=== PATIENT | female | born 1995 | race Two or more races ===

== ENCOUNTER 2025-04-27 08:40 | Emergency (ER) | payer SELFPAY ==
[~2025-04-27] VITALS: Ht 170.2 cm; Wt 82.5 kg
[2025-04-27 08:43] VITALS: BP 126/64; PULSE 79; RESP 15; TEMP 98.2; O2SAT 98
== END 2025-04-27 10:33 | disposition left against medical advice (07) ==
LOC: ER 08:40
DX: Z20.2 Contact with and (suspected) exposure to infections with a predominantly sexual mode of transmission (principal); Z53.21 Procedure and treatment not carried out due to patient leaving prior to being seen by health care provider